=== PATIENT | female | born 2000 | race Caucasian/White ===

== ENCOUNTER 2020-10-16 21:50 | Emergency (ER) | payer OTHER ==
[~2020-10-16] VITALS: Ht 180.3 cm; Wt 145.6 kg
[2020-10-17] MEDS ORDERED: FLUORESCEIN OPHTH 1 MG STRIP OU ONE (01:05)
[2020-10-17] MEDS ORDERED: TETRACAINE 0.5% OPHTH SOLN 4ML OU ONE (01:05)
[2020-10-17] MEDS ORDERED: KETOROLAC 0.5% OPHTH SOLN OS ONE (01:35)
[2020-10-17] MEDS ORDERED: OLOPATADINE 0.1% OPHTH SOL 5ML(PATANOL) OU STA (01:35)
[2020-10-17] MEDS ORDERED: OLOP0.1D OP (02:01)
[2020-10-17] MEDS ORDERED: ACUL0.5S OS (02:01)
[2020-10-17 02:09] VITALS: BP 132/90
== END 2020-10-17 02:11 | disposition home or self-care (01) ==
LOC: M ED 21:50
DX: H10.12 Acute atopic conjunctivitis, left eye (principal)

== ENCOUNTER → 2022-07-29 | Outpatient (CLI) | payer OTHER ==
[~2022-07-29] MED LIST: ACUL0.5S OS; OLOP5DRO16 OP
== END ==
LOC: M WHC 13:00
PROVIDERS: ATTEND Physician Assistant
DX: R10.2 Pelvic and perineal pain (principal); Z97.5 Presence of (intrauterine) contraceptive device